=== PATIENT | male | born 1970 | race Caucasian/White ===

== ENCOUNTER → 2016-07-30 | Outpatient (CLI) | payer OTHER ==
--- NOTE | 2016-07-30 10:13 | CT ---
EXAMINATION TYPE: CT chest wo con DATE OF EXAM: 07/30/2016 9:57 AM COMPARISON: NONE HISTORY: Abnormal cxr CT DLP: 222.90 mGycm. Automated Exposure Control for Dose Reduction was Utilized. TECHNIQUE: CT scan of the thorax is performed without IV contrast. FINDINGS: LUNGS: There is mild underlying emphysematous change with apical scarring and bleb formation seen eduar aterally. Lungs are grossly clear without suspicious consolidation or groundglass opacity seen bilate rally. No concerning parenchymal nodule or mass is identified bilaterally. No pleural effusion or pne umothorax is seen. Tracheobronchial tree is patent. MEDIASTINUM: Lack of IV contrast is noted to limit evaluation for mediastinal and especially hilar ad enopathy. There are no definitive greater than 1 cm hilar or mediastinal lymph nodes. No cardiomega ly or pericardial effusion is seen. Coronary artery calcification in the LAD distribution is present. OTHER: Exaggerated kyphosis with mild to moderate disc space narrowing and mild spurring at T11-T12 l evel is noted. There is 2 mm nonobstructing calculus upper pole level left kidney on coronal image 55 . Artifact from metallic necklace at neck level is noted making evaluation at this level suboptimal. IMPRESSION: No suspicious parenchymal mass or nodule is identified.
== END ==
LOC: RADCTMAIN 09:26
PROVIDERS: ATTEND Family Medicine
DX: R93.8 Abnormal findings on diagnostic imaging of other specified body structures (principal)
CPT/HCPCS: 71250

== ENCOUNTER 2016-08-26 18:35 | Emergency (ER) | payer OTHER ==
[2016-08-26] MEDS ORDERED: SODIUM CHLORIDE 0.9% 500 ML IV STA (20:31)
[2016-08-26] MEDS ORDERED: SODIUM CHLORIDE 0.9% 1,000 ML IV STA (20:31)
[2016-08-26] MEDS ORDERED: RX INFO: IV CONTRAST WAS GIVEN 1 EACH MISC MISCELLANE PRN (20:32)
[2016-08-26 21:21] LABS: Basophils % (A) 1 %; CH 31.8; CHCM 34.2; Eosinophils % (A) 0 %; HCT 48.6 % (39.0-53.0); HDW 2.21; HGB 16.4 gm/dL (13.0-17.5); Luc # (Auto) 0.15; Luc % (Auto) 2; Lymphocytes # (A) 1.6 k/uL (1.0-4.8); Lymphocytes % (A) 21 %; MCH 31.5 pg (25.0-35.0); MCHC 33.8 g/dL (31.0-37.0); MCV 93.4 fL (80.0-100.0); Mean Platelet Volume 6.4; Monocytes # (A) 0.5 k/uL (0-1.0); Monocytes % (A) 6 %; Neutrophils # (A) 5.2 k/uL (1.3-7.7); Neutrophils % (A) 70 %; RDW 14.8 % (11.5-15.5); WBC 7.4 k/uL (3.8-10.6); WBC (Perox) 7.77
[2016-08-26 21:37] LABS: INR 1.4 (<1.1); Partial Thromboplastin Time 25.2 sec (22.0-30.0); Prothrombin Time 13.5 sec (9.0-12.0)
[2016-08-26 21:42] LABS: ALT 36 U/L (21-72); AST 37 U/L (17-59); Acetaminophen <10.0 ug/mL; Alkaline Phosphatase 101 U/L (38-126); Anion Gap 12 mmol/L; Blood Urea Nitrogen 8 mg/dL (9-20); Calcium 8.6 mg/dL (8.4-10.2); Carbon Dioxide 30 mmol/L (22-30); Chloride 104 mmol/L (98-107); Glucose 88 mg/dL (74-99); Non-African American GFR(MDRD) >60 (>60 ml/min/1.73 sqM); Potassium 4.1 mmol/L (3.5-5.1); Salicylate 2.7 mg/dL; Sodium 146 mmol/L (137-145); Total Bilirubin 0.8 mg/dL (0.2-1.3); Total Protein 7.6 g/dL (6.3-8.2)
[2016-08-26 21:47] LABS: Alcohol 262 mg/dL
--- NOTE | 2016-08-26 22:11 | CT ---
EXAMINATION TYPE: CT brain wo con DATE OF EXAM: 08/26/2016 9:32 PM COMPARISON: NONE HISTORY: Altered mental status. Head injury per order. CT DLP: 1074.10 mGycm. Automated Exposure Control for Dose Reduction was Utilized. TECHNIQUE: CT scan of the head is performed without contrast. FINDINGS: There is no acute intracranial hemorrhage, mass effect, or midline shift identified. The ventricles and sulci are within normal limits in size. Rodriguez-white matter differentiation is felt ma intained. Mild to moderate mucosal thickening involving inferior left frontal and anterior left ethmo id sinus is present. The globes are intact and the visualized paranasal sinuses otherwise are clear. The calvarium is intact. IMPRESSION: No acute intracranial hemorrhage or midline shift is seen.
--- NOTE | 2016-08-26 22:43 | ED ---
General Adult HPI - General Source: family Mode of arrival: wheelchair Limitations: altered mental status <Jacoby Milian - Last Filed: 08/26/16 22:43> <Perico Linares - Last Filed: 08/27/16 08:49> - General Chief complaint: Alcohol Stated complaint: Overdose Time Seen by Provider: 08/26/16 20:23 - History of Present Illness Initial comments: This 45-year-old white male presents after apparently drinking a significant amount of alcohol. He states that for the past 2 days he has been drinking approximately 1/5 of alcohol. He also apparently has been taking a lot of Xanax. He states that he is taking 10 Xanax bars per day. Apparently a Xanax bar equals 1 mg. He was brought in by EMS but his friends are present with them. They relate that he has been clear of drugs and alcohol for the last 2 years until the last 2 days. They apparently found him in bed. He was telling them that he wants to drink himself to . He does confirm this in the ER. He presents with an abrasion to his left forehead region. He is unsure how this happened. He does state that he is on Coumadin and thinks that he may have taken too much of this by accident. He denies any other injuries or areas of pain or modifying factors. Overall, he is a fairly poor historian due to his intoxication. (Jacoby Milian) - Related Data Home Medications Medication Instructions Recorded Confirmed Multivitamins, Thera [Multivitamin 1 tab PO DAILY 08/26/16 08/26/16 (formulary)] Warfarin [Coumadin] 2.5 mg PO SUMOWEFR 08/26/16 08/26/16 Warfarin [Coumadin] 5 mg PO TUTH 08/26/16 08/26/16 Allergies Allergy/AdvReac Type Severity Reaction Status Date / Time No Known Allergies Allergy Verified 08/26/16 20:41 Review of Systems ROS Other: All systems not noted in ROS Statement are negative. <Jacoby Milian - Last Filed: 08/26/16 22:43> ROS Other: All systems not noted in ROS Statement are negative. <Perico Linares - Last Filed: 08/27/16 08:49> ROS Statement: Those systems with pertinent positive or pertinent negative responses have been documented in the HPI. Past Medical History Additional Past Medical History / Comment(s): FACTOR 5, FORMER ALCOHOLIC History of Any Multi-Drug Resistant Organisms: None Reported Additional Past Surgical History / Comment(s): STOMACH, neck Past Psychological History: Anxiety, Depression Smoking Status: Current every day smoker Past Alcohol Use History: None Reported, Heavy Past Drug Use History: None Reported, Prescription Drug Abuse <Jacoby Milian - Last Filed: 08/26/16 22:43> General Exam Limitations: altered mental status <Jacoby Milian - Last Filed: 08/26/16 22:43> <Perico Linares - Last Filed: 08/27/16 08:49> - General Exam Comments Initial Comments: GENERAL: The patient is well nourished and well hydrated. VITAL SIGNS: Heart rate, blood pressure, respiratory rate reviewed as recorded in nurse's notes. EYES: Pupils are round and reactive. Extraocular movements are intact. No conjunctival / lid redness or swelling. ENT: No external evidence of injury, swelling, or ecchymosis other than a slight abrasion present to his left forehead region. Airway is patent. Throat is clear. NECK: Nontender. No swelling or evidence of injury. No subcutaneous emphysema. Trachea is midline. No thyroid mass. HEART: Regular rate and rhythm. Good peripheral pulses. LUNGS/CHEST: Breath sounds clear and equal bilaterally. No rales, rhonchi, or wheezes. No ecchymosis, subcutaneous emphysema, or tenderness. ABDOMEN: Abdomen soft without tenderness. No palpable masses or organomegaly. No peritoneal signs. No abdominal wall swelling or ecchymosis. EXTREMITIES: No extremity tenderness. Normal muscle tone and function. No thoracolumbar tenderness. NEUROLOGIC: Sensation is grossly intact. Cranial nerve exam reveals face is symmetrical, tongue is midline, speech is clear. SKIN: No other abrasions or ecchymosis is noted. No induration or masses noted. PSYCHIATRIC: Alert and oriented. Appears intoxicated. (Jacoby Milian) Course <Jacoby Milian - Last Filed: 08/26/16 22:43> <Perico Linares - Last Filed: 08/27/16 08:49> Vital Signs 08/26/16 08/26/16 08/26/16 18:37 20:41 22:00 Temperature 98.2 F Pulse Rate 107 H 88 87 Respiratory 18 20 20 Rate Blood Pressure 132/90 125/56 120/70 O2 Sat by Pulse 94 L 96 98 Oximetry 08/27/16 06:14 Temperature Pulse Rate 89 Respiratory 18 Rate Blood Pressure 116/58 O2 Sat by Pulse 96 Oximetry - Reevaluation(s) Reevaluation #1: 08/27/16 08:49 Patient was made medically clear for psychiatric evaluation (Perico Linares) Medical Decision Making - Lab Data Result diagrams: 08/26/16 20:55 08/26/16 20:55 <Jacoby Milian - Last Filed: 08/26/16 22:43> - Lab Data Result diagrams: 08/26/16 20:55 08/26/16 20:55 <Perico Linares - Last Filed: 08/27/16 08:49> - Medical Decision Making The patient was seen and examined. All diagnostics were reviewed to this point. The patient appears to have an elevation of his alcohol level. He'll be watched in the ER for the evening. The computed tomography scan of the brain did not show any acute process. Further care will be passed on to Dr. Giles. (Jacoby Milian) 45-year-old ER for evaluation of psychiatric care. Patient seen and evaluated by psychiatry, states patient is safe for discharge home, will probably be provided with referrals, not homicidal or suicidal currently (Perico Linares) - Lab Data Lab Results 08/26/16 08/26/16 08/26/16 Range/Units 20:55 20:55 20:55 WBC 7.4 (3.8-10.6) k/uL RBC 5.20 (4.30-5.90) m/uL Hgb 16.4 (13.0-17.5) gm/dL Hct 48.6 (39.0-53.0) % MCV 93.4 (80.0-100.0) fL MCH 31.5 (25.0-35.0) pg MCHC 33.8 (31.0-37.0) g/dL RDW 14.8 (11.5-15.5) % Plt Count 309 (150-450) k/uL Neutrophils % 70 % Lymphocytes % 21 % Monocytes % 6 % Eosinophils % 0 % Basophils % 1 % Neutrophils # 5.2 (1.3-7.7) k/uL Lymphocytes # 1.6 (1.0-4.8) k/uL Monocytes # 0.5 (0-1.0) k/uL Eosinophils # 0.0 (0-0.7) k/uL Basophils # 0.0 (0-0.2) k/uL PT 13.5 H (9.0-12.0) sec INR 1.4 (<1.1) APTT 25.2 (22.0-30.0) sec Sodium 146 H (137-145) mmol/L Potassium 4.1 (3.5-5.1) mmol/L Chloride 104 (98-107) mmol/L Carbon Dioxide 30 (22-30) mmol/L Anion Gap 12 mmol/L BUN 8 L (9-20) mg/dL Creatinine 0.98 (0.66-1.25) mg/dL Est GFR (MDRD) Af Amer >60 (>60 ml/min/1.73 sqM) Est GFR (MDRD) Non-Af >60 (>60 ml/min/1.73 sqM) Glucose 88 (74-99) mg/dL Calcium 8.6 (8.4-10.2) mg/dL Total Bilirubin 0.8 (0.2-1.3) mg/dL AST 37 (17-59) U/L ALT 36 (21-72) U/L Alkaline Phosphatase 101 (38-126) U/L Total Protein 7.6 (6.3-8.2) g/dL Albumin 4.2 (3.5-5.0) g/dL Salicylates 2.7 mg/dL Urine Opiates Screen (NotDetected) Ur Oxycodone Screen (NotDetected) Urine Methadone Screen (NotDetected) Ur Propoxyphene Screen (NotDetected) Acetaminophen <10.0 ug/mL Ur Barbiturates Screen (NotDetected) U Tricyclic Antidepress (NotDetected) Ur Phencyclidine Scrn (NotDetected) Ur Amphetamines Screen (NotDetected) U Methamphetamines Scrn (NotDetected) U Benzodiazepines Scrn (NotDetected) Urine Cocaine Screen (NotDetected) U Marijuana (THC) Screen (NotDetected) Serum Alcohol 262 mg/dL 08/27/16 Range/Units 01:22 WBC (3.8-10.6) k/uL RBC (4.30-5.90) m/uL Hgb (13.0-17.5) gm/dL Hct (39.0-53.0) % MCV (80.0-100.0) fL MCH (25.0-35.0) pg MCHC (31.0-37.0) g/dL RDW (11.5-15.5) % Plt Count (150-450) k/uL Neutrophils % % Lymphocytes % % Monocytes % % Eosinophils % % Basophils % % Neutrophils # (1.3-7.7) k/uL Lymphocytes # (1.0-4.8) k/uL Monocytes # (0-1.0) k/uL Eosinophils # (0-0.7) k/uL Basophils # (0-0.2) k/uL PT (9.0-12.0) sec INR (<1.1) APTT (22.0-30.0) sec Sodium (137-145) mmol/L Potassium (3.5-5.1) mmol/L Chloride (98-107) mmol/L Carbon Dioxide (22-30) mmol/L Anion Gap mmol/L BUN (9-20) mg/dL Creatinine (0.66-1.25) mg/dL Est GFR (MDRD) Af Amer (>60 ml/min/1.73 sqM) Est GFR (MDRD) Non-Af (>60 ml/min/1.73 sqM) Glucose (74-99) mg/dL Calcium (8.4-10.2) mg/dL Total Bilirubin (0.2-1.3) mg/dL AST (17-59) U/L ALT (21-72) U/L Alkaline Phosphatase (38-126) U/L Total Protein (6.3-8.2) g/dL Albumin (3.5-5.0) g/dL Salicylates mg/dL Urine Opiates Screen Not Detected (NotDetected) Ur Oxycodone Screen Not Detected (NotDetected) Urine Methadone Screen Not Detected (NotDetected) Ur Propoxyphene Screen Not Detected (NotDetected) Acetaminophen ug/mL Ur Barbiturates Screen Not Detected (NotDetected) U Tricyclic Antidepress Not Detected (NotDetected) Ur Phencyclidine Scrn Not Detected (NotDetected) Ur Amphetamines Screen Not Detected (NotDetected) U Methamphetamines Scrn Not Detected (NotDetected) U Benzodiazepines Scrn Detected H (NotDetected) Urine Cocaine Screen Not Detected (NotDetected) U Marijuana (THC) Screen Not Detected (NotDetected) Serum Alcohol mg/dL Disposition <Jacoby Milian - Last Filed: 08/26/16 22:43> <Perico Linares - Last Filed: 08/27/16 08:49> Clinical Impression: Alcohol intoxication, Benzodiazepine abuse, Head injury Disposition: HOME SELF-CARE Condition: Good Instructions: Alcohol Intoxication (ED) Referrals: Loly Chauhan MD [Primary Care Provider] - 1-2 days
[2016-08-27 10:00] VITALS: BP 124/85; PULSE 78; RESP 16; TEMP 97.8
== END 2016-08-27 09:57 | disposition home or self-care (01) ==
LOC: EC 18:35
DX: S00.81XA Abrasion of other part of head, initial encounter (principal); F13.129 Sedative, hypnotic or anxiolytic abuse with intoxication, unspecified; F32.9 Major depressive disorder, single episode, unspecified; F41.9 Anxiety disorder, unspecified; F17.200 Nicotine dependence, unspecified, uncomplicated; Z79.01 Long term (current) use of anticoagulants; Z79.899 Other long term (current) drug therapy; X58.XXXA Exposure to other specified factors, initial encounter
CPT/HCPCS: 36415; 70450; 80053; 80306; 80320; 83520; 85025; 85610; 85730; 99285

== ENCOUNTER 2022-09-01 09:08 | Day surgery (SDC) | payer OTHER ==
[2022-08-27 09:55] VITALS: BMI 25.7
[~2022-09-01 09:08] MED LIST: ACETAMINOPHEN TAB 500 MG TAB PO PRN; DEXAMETHASONE SOD PHOSPHATE 4 MG/ML 1 ML VIAL IV ONE; HEPARIN SODIUM,PORCINE/PF 5,000 UNIT/0.5 ML SYRINGE SQ PRN; HYDROmorphone 0.5 MG/0.5 ML SYRINGE IVP PRN; LIDOCAINE 1% (10MG/ML) FOR IV START INTRADERMA PRN; droPERidol 5 MG/2 ML VIAL IVP ONE
[2022-09-01 10:27] LABS: Glucose,Whole Blood 80 mg/dL (70-110)
[2022-09-01] MEDS: LACTATED RINGERS 1,000 ML IV SCH (10:33)
[2022-09-01] MEDS: ONDANSETRON 4 MG/2 ML VIAL IVP ONE ×2 (10:33→10:34)
[2022-09-01] MEDS ORDERED: MIDAZOLAM 2 MG/2 ML VIAL IVP ONE (11:15)
[2022-09-01 11:16] LABS: Basophils % (A) 1 %; Eosinophils # (A) 0.1 k/uL (0-0.7); Eosinophils % (A) 1 %; HCT 45.3 % (39.0-53.0); Lymphocytes # (A) 1.3 k/uL (1.0-4.8); Lymphocytes % (A) 23 %; MCH 29.9 pg (25.0-35.0); MCHC 33.2 g/dL (31.0-37.0); MCV 90.2 fL (80.0-100.0); Mean Platelet Volume 7.5; Monocytes # (A) 0.4 k/uL (0-1.0); Monocytes % (A) 7 %; Neutrophils # (A) 3.8 k/uL (1.3-7.7); Neutrophils % (A) 67 %; Platelet Count 329 k/uL (150-450); RBC 5.02 m/uL (4.30-5.90); RDW 12.7 % (11.5-15.5); WBC 5.8 k/uL (3.8-10.6)
--- NOTE | 2022-09-01 11:28 | P.GSHP ---
History of Present Illness H&P Date: 09/01/22 Chief Complaint: Incarcerated ventral hernia 51-year-old male presents with complaints of a bulge above the umbilicus. States this has been increasing in size. It is more uncomfortable lately. Occasionally he is able to reduce this hernia. Past Medical History Past Medical History: Deep Vein Thrombosis (DVT), Prostate Disorder Additional Past Medical History / Comment(s): FACTOR 5 Leiden-dvts left calf yrs aog, FORMER ALCOHOLIC-quit drinking 150 days ago,enlarged prostate,enlarged liver History of Any Multi-Drug Resistant Organisms: None Reported Additional Past Surgical History / Comment(s): "STOMACH surgery because I wasn't able to hold food down as a ", left carotid artery "cleaned out" Past Anesthesia/Blood Transfusion Reactions: No Reported Reaction Additional Past Anesthesia/Blood Transfusion Reaction / Comment(s): no hx blood transfusion Smoking Status: Current every day smoker - Past Family History Mother Family Medical History: No Reported History Medications and Allergies Home Medications Medication Instructions Recorded Confirmed Type Apixaban [Eliquis] 2.5 mg PO BID 08/27/22 09/01/22 History Cholecalciferol [Vitamin D3 (25 50 mcg PO DAILY 08/27/22 09/01/22 History Mcg = 1000 Iu)] Tamsulosin [Flomax] 0.4 mg PO QAM 08/27/22 09/01/22 History tiZANidine HCL [Zanaflex] 4 - 8 mg PO HS PRN 08/27/22 09/01/22 History Allergies Allergy/AdvReac Type Severity Reaction Status Date / Time No Known Allergies Allergy Verified 09/01/22 10:09 Surgical - Exam Vital Signs Temp Pulse Resp BP Pulse Ox 96.7 F L 65 17 117/70 97 09/01/22 10:15 09/01/22 10:15 09/01/22 10:15 09/01/22 10:15 09/01/22 10:15 Physical exam: General: Well-developed, well-nourished HEENT: Normocephalic, sclerae nonicteric Abdomen: Nontender, nondistended, incarcerated hernia above the umbilicus suspect ventral Extremities: No edema Neuro: Alert and oriented Results - Labs 09/01/22 10:30 Assessment and Plan (1) Incarcerated ventral hernia Narrative/Plan: Will proceed with open repair incarcerated ventral hernia with possible mesh. Risks of bleeding, infection, recurrence, bladder and bowel injury, numbness, nerve injury were discussed with the patient. The patient understands and wishes to proceed. Current Visit: Yes Status: Acute Code(s): K43.6 - OTHER AND UNSP VENTRAL HERNIA WITH OBSTRUCTION, W/O GANGRENE SNOMED Code(s): 468102011
[2022-09-01 11:37] LABS: Calcium 9.4 mg/dL (8.4-10.2); Potassium 4.2 mmol/L (3.5-5.1)
[2022-09-01] MEDS ORDERED: WATER FOR INJECTION, STERILE 10 ML VIAL IV ONE (11:47)
[2022-09-01] MEDS ORDERED: fentaNYL (PF) 50 MCG/ML 2 ML AMP ONE (11:47)
[2022-09-01] MEDS ORDERED: NEOSTIGMINE 1 MG/ML 10 ML VIAL ONE (11:47)
[2022-09-01] MEDS ORDERED: DEXAMETHASONE SOD PHOSPHATE 4 MG/ML 1 ML VIAL ONE (11:47)
[2022-09-01] MEDS ORDERED: ROCURONIUM 10 MG/ML (5 ML VIAL) IV ONE (11:47)
[2022-09-01] MEDS ORDERED: PHENYLEPHRINE-0.9% NACL SYG 1,000 MCG/10 ML SYRINGE ONE (11:47)
[2022-09-01] MEDS ORDERED: PROPOFOL 10 MG/ML 20 ML VIAL IV ONE (11:47)
[2022-09-01] MEDS ORDERED: ROPIVACAINE 5 MG/ML 30 ML VIAL ONE (11:47)
[2022-09-01] MEDS ORDERED: GLYCOPYRROLATE 0.2 MG/ML 2 ML VIAL ONE (11:47)
[2022-09-01] MEDS ORDERED: SUCCINYLCHOLINE CHLORIDE 200 MG/10 ML VIAL IV ONE (11:47)
[2022-09-01] MEDS ORDERED: LIDOCAINE 2% INJ 20 MG/ML (2 ML VIAL) ONE (11:47)
[2022-09-01] MEDS ORDERED: LACTATED RINGERS 1,000 ML IV ONE (12:59)
[2022-09-01] MEDS ORDERED: HYDROmorphone 1 MG/ML 1 ML SYRINGE IVP PRN (13:59)
[2022-09-01] MEDS ORDERED: HYDROmorphone 0.5 MG/0.5 ML SYRINGE IVP PRN (13:59)
[2022-09-01] MEDS ORDERED: NALOXONE 0.4 MG/ML 1 ML VIAL IV PRN (13:59)
--- NOTE | 2022-09-01 14:06 | P.OP ---
Date of Procedure: 09/01/22 Procedure(s) Performed: PREOPERATIVE DIAGNOSIS: Incarcerated ventral hernia POSTOPERATIVE DIAGNOSIS: Incarcerated ventral hernia with multiple defects, reducible umbilical hernia PROCEDURE: Open repair incarcerated ventral hernia and umbilical hernia with mesh SURGEON: Dr. New ANESTHESIA: General OPERATIVE PROCEDURE DETAILS: Patient placed on the operating table in the supine position. Abdomen was prepped and draped in usual sterile fashion. A vertical incision was then made superior to the umbilicu. Dissection through the subcutaneous tissues took place using electrocautery. The patient had a total of 4 fascial defects identified. 3 of these fascial defects were in the supraumbilical location. A single reducible umbilical hernia was also noted. These were all included in 21 fascial opening by dividing the thin bridge of fascia between these holes. We now had a fascial defect measuring 7 x 3 cm. The preperitoneal space was dissected using electrocautery and blunt dissection. We did penetrate into the peritoneum laterally. The hernia sac and pre- peroneal fat was excised using 3-0 silk ties. Once we had adequate space a 8 x 12 cm Ventrio mesh was placed. This was then sutured to the fascia using trans- fascial 0 Ethibond sutures. Secure strap was also utilized circumferentially. Following that the midline fascia was reapproximated using interrupted 0 Ethibond mattress sutures. A drain was placed anterior to the fascial closure exiting from the left lower quadrant. This is sutured in place using a silk stitch. The subcutaneous tissues were closed using 2-0 Vicryl sutures. The skin was closed using a running 4-0 Monocryl suture. Skin glue and sterile dressings were applied. HERNIA CHARACTERISTICS: Length: 7 cm Width: 3 cm Type: Combined ventral and umbilical TYPE OF MESH USED: Ventrio 8 x 12 cm LOCATION OF MESH: Sub-lay intraperitoneal FIXATION: 0 Ethibond and secure strap PREOPERATIVE DISCUSSION ON SMOKING CESSASTION: Yes PREOPERATIVE DISCUSSION ON MORBID OBESITY: Yes PREOPERATIVE DISCUSSION ON APPROPRIATE USE OF NARCOTIC USE: Yes PREOPERATIVE EDUCATION: Multi Modal, Smoking Cessation and Weight Loss with BMI over 35. DISPOSITION: Stable to recovery room
[2022-09-01] MEDS: D5-0.45% NACL WITH KCL 20MEQ/L 1,000 ML IV SCH (16:16)
[2022-09-01] MEDS: HEPARIN SODIUM,PORCINE/PF 5,000 UNIT/0.5 ML SYRINGE SQ SCH (16:17)
[2022-09-01] MEDS: KETOROLAC 15 MG/ML 1 ML VIAL IVP SCH (18:08)
[2022-09-01] MEDS: DOCUSATE 100 MG CAP PO SCH (20:21)
[2022-09-01] MEDS: FAMOTIDINE 20 MG TAB PO SCH (20:21)
[2022-09-01] MEDS: HYDROcodone/APAP 5-325MG 1 EACH TAB PO PRN (20:21)
[2022-09-02] MEDS: HEPARIN SODIUM,PORCINE/PF 5,000 UNIT/0.5 ML SYRINGE SQ SCH ×2 (01:31→09:30)
[2022-09-02] MEDS: HYDROcodone/APAP 5-325MG 1 EACH TAB PO PRN ×2 (01:31→09:40)
[2022-09-02] MEDS: KETOROLAC 15 MG/ML 1 ML VIAL IVP SCH ×3 (01:31→12:16)
[2022-09-02] MEDS: D5-0.45% NACL WITH KCL 20MEQ/L 1,000 ML IV SCH ×2 (01:32→12:16)
[2022-09-02] MEDS: LACTATED RINGERS 1,000 ML IV SCH (07:50)
[2022-09-02 08:31] VITALS: BP 98/65; PULSE 67; RESP 16; TEMP 98.2
[2022-09-02] MEDS: FAMOTIDINE 20 MG TAB PO SCH (09:30)
[2022-09-02] MEDS: DOCUSATE 100 MG CAP PO SCH (09:30)
--- NOTE | 2022-09-02 11:37 | P.DS ---
Providers Expected date of discharge: 09/02/22 Attending physician: Sergio New Primary care [facility] Course: Discharge diagnosis 1. Incarcerated ventral hernia with multiple defects, reducible umbilical hernia Hospital course This is a 51-year-old male with an incarcerated ventral hernia and reducible umbilical hernia. He is status post open repair of incarcerated ventral hernia and umbilical hernia with mesh. Patient's pain is controlled. He is tolerating diet. He has been up and ambulating. He is having flatus. He is afebrile. Incision sites clean dry and intact. He is stable for discharge. Please refer to chart for any further details. Physician Regional Sales Director note has been reviewed by physician. Signing provider agrees with the documented findings, assessment, and plan of care. Patient Condition at Discharge: Stable Plan - Discharge Summary Discharge Rx Participant: No New Discharge Prescriptions: New oxyCODONE HCL [OxyIR] 5 mg PO Q6H PRN 3 Days #6 tab PRN Reason: Breakthrough Pain Continue Tamsulosin [Flomax] 0.4 mg PO QAM Cholecalciferol [Vitamin D3 (25 Mcg = 1000 Iu)] 50 mcg PO DAILY tiZANidine HCL [Zanaflex] 4 - 8 mg PO HS PRN PRN Reason: Pain Control No Action Apixaban [Eliquis] 2.5 mg PO BID Discharge Medication List Apixaban [Eliquis] 2.5 mg PO BID 08/27/22 [History] Cholecalciferol [Vitamin D3 (25 Mcg = 1000 Iu)] 50 mcg PO DAILY 08/27/22 [History] Tamsulosin [Flomax] 0.4 mg PO QAM 08/27/22 [History] tiZANidine HCL [Zanaflex] 4 - 8 mg PO HS PRN 08/27/22 [History] oxyCODONE HCL [OxyIR] 5 mg PO Q6H PRN 3 Days #6 tab 09/01/22 [Rx] Follow up Appointment(s)/Referral(s): Sergio New MD [Medical Doctor] - 09/10/22 2:30 pm Patient Instructions/Handouts: *Surgery [facility] - (Anesthesia) Discharge Instructions Outpatient Surgery, Demian-Baker Drain Care (ED), Demian-Baker Drain Care (DC), Open Herniorrhaphy (DC), Ventral Hernia Repair (DC) Activity/Diet/Wound Care/Special Instructions: No driving while taking OxyIR No lifting over 10 pounds You may shower. No soaking or tub baths for 2 weeks Very light activity until you are reevaluated at your follow up appointment with your surgeon Keep a log of SKIP drain output and bring with you to your follow-up appointment Milk/strip drains 2-3 times a day Resume Christophe tomorrow 09/03/22 Discharge Disposition: HOME WITH HOME HEALTH SERVICES
--- NOTE | 2022-09-02 13:06 | P.ANPRN ---
Procedure Note - Anesthesia - Nerve Block Performed Bilateral Transversus Abdominis Single Time Out Performed: Yes Date of Procedure: 09/01/22 Procedure Start Time: 11:14 Procedure Stop Time: :21 Location of Patient: PreOp Indication: Acute Post-Operative Pain, Requested by Surgeon Sedation Type: Sedate with meaningful contact maintained Preparation: Sterile Prep Position: Supine Needle Types: Pajunk Needle Gauge: 21 Ultrasound used to visualize needle placement: Yes Ultrasound used to observe medication spread: Yes Blood Aspirated: No Pain Paresthesia on Injection Noted: No Resistance on Injection: Normal Image Stored and Saved: Yes Events: Uneventful and Well Tolerated (ropi .5% 20cc plus dexamethasone 4mg given bilaterally)
== END 2022-09-02 14:42 | disposition home health service (06) ==
LOC: OR 09:08 → 6NMEDSUR 13:50 → OR 09-02 14:42
PROVIDERS: ATTEND Surgery
DX: K43.6 Other and unspecified ventral hernia with obstruction, without gangrene (principal); K42.9 Umbilical hernia without obstruction or gangrene; G89.18 Other acute postprocedural pain; Z86.718 Personal history of other venous thrombosis and embolism; F17.200 Nicotine dependence, unspecified, uncomplicated; Z79.01 Long term (current) use of anticoagulants; Z79.899 Other long term (current) drug therapy
CPT/HCPCS: 64488; 80048; 85025; 88302; 49594; C1781; J2250; J1100; J0690; J2405; J1170 ×2; J1885 ×2; J1644 ×2

== ENCOUNTER → 2022-10-16 | Outpatient (CLI) | payer OTHER ==
--- NOTE | 2022-10-16 12:00 | US ---
EXAMINATION TYPE: US carotid duplex BILAT DATE OF EXAM: 10/16/2022 COMPARISON: NONE CLINICAL INDICATION: Male, 51 years old with history of I77.9 DISORDER OF ARTERIES AND ARTERIOLES, UN SPECI; known Lt. side occlusion TECHNIQUE: Carotid duplex ultrasound examination. Indirect Doppler criteria was utilized. FINDINGS: EXAM MEASUREMENTS: RIGHT: Peak Systolic Velocity (PSV) cm/sec ----- Right CCA: 89.7 ----- Right ICA: 90.1 ----- Right ECA: 72.1 ICA/CCA ratio: 1.0 RIGHT: End Diastole cm/sec ----- Right CCA: 35.8 ----- Right ICA: 48.7 ----- Right ECA: 20.4 LEFT: Peak Systolic Velocity (PSV) cm/sec ----- Left CCA: 0.0 ----- Left ICA: 0.0 ----- Left ECA: 60.4 ICA/CCA ratio: n/a LEFT: End Diastole cm/sec ----- Left CCA: 0.0 ----- Left ICA: 0.0 ----- Left ECA: 32.5 VERTEBRALS (direction of flow): Right Vertebral: Antegrade Left Vertebral: Antegrade Rhythm: Normal SOFTWARE ENGINEERING SPECIALIST NOTES: small area of plaque in RT bulb. LT side known occlusion extends from prox CCA to Prox ICA, flow noted in ECA IMPRESSION: 1. No ultrasound evidence for hemodynamically significant stenosis of the right carotid arterial syst em. 2. 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 There is flow noted within the left external carotid artery. Criteria for Assigning % of Stenosis / Diameter reduction (Estimation based on the indirect measurements of the internal carotid artery velocities (ICA PSV). 1. Normal (no stenosis)=ICA PSV < 125 cm/s: ratio < 2.0: ICA EDV<40 cm/s. 2. Less than 50% stenosis=ICA PSV < 125 cm/s: ratio < 2.0: ICA EDV<40 cm/s. 3. 50 to 69% stenosis=ICA PSV of 125 to 230 cm/s: ration 2.0 ? 4.0: ICA EDV 40-100 cm/s. 4. Greater than 70% stenosis to near occlusion= ICA PSV > 230 cm/s: ratio > 4.0: ICA EDV > 100 cm/s. 5. Near occlusion= ICA PSV velocities may be low or undetectable: variable ratio and ICA EDV. 6. Total occlusion=unable to detect flow.
== END | disposition home or self-care (01) ==
LOC: RADUSWWP 10:51
PROVIDERS: ATTEND Family Medicine
DX: I65.22 Occlusion and stenosis of left carotid artery (principal); I77.9 Disorder of arteries and arterioles, unspecified
CPT/HCPCS: 93880

== ENCOUNTER → 2023-06-24 | Outpatient (CLI) | payer OTHER ==
--- NOTE | 2023-06-24 12:23 | CTL ---
EXAMINATION TYPE: CT Low Dose Lung DATE OF EXAM ORDERED: 06/24/2023 HISTORY: . Lung cancer screening CT DLP: [address] CTDI: 1.95 mGy Automated exposure control for dose reduction was used. COMPARISON: 07/30/2016. TECHNIQUE: Low dose computed tomography scan was performed through the chest at 1 mm thick sections a nd reconstructed images in multiple planes at 1 mm and [address] DIAGNOSTIC QUALITY: Satisfactory FINDINGS: Mediastinum and Sangeeta: There is no axillary, mediastinal or hilar lymphadenopathy. Pleural and Pericardial spaces: There are no pleural or pericardial effusions. Upper Abdomen: The visualized upper abdomen is unremarkable. Cardiovascular: The thoracic aorta is normal in size. There are mild patchy coronary artery calcifica tions. Lung Parenchyma and Airways: The lungs are clear. Bones: No fracture or aggressive osseous lesion. IMPRESSION: 1. Negative lung cancer screening examination for new or significant pulmonary nodules. 2. Mild coronary artery calcifications. CT LUNG RAD AND CT CHEST RECOMMENDATION: Lung-Rad 1 Negative: Continue annual screening with LDCT in 12 months.
== END | disposition home or self-care (01) ==
LOC: RADCTMAIN 09:20
PROVIDERS: ATTEND Family Medicine
DX: Z12.2 Encounter for screening for malignant neoplasm of respiratory organs (principal); F17.210 Nicotine dependence, cigarettes, uncomplicated; I25.10 Atherosclerotic heart disease of native coronary artery without angina pectoris
CPT/HCPCS: 71271

== ENCOUNTER → 2023-07-02 | Outpatient (CLI) | payer OTHER ==
--- NOTE | 2023-07-02 14:03 | US ---
EXAMINATION TYPE: US kidneys/renal and bladder DATE OF EXAM: 07/02/2023 COMPARISON: NONE CLINICAL INDICATION: Male, 52 years old with history of R31.21 ASYMPTOMATIC MICROSCOPIC HEMATURIA,Z72 .0; Patient states he is anemic. No other pain or symptoms EXAM MEASUREMENTS: Right Kidney: 9.4 x 4.3 x 5.3 cm Left Kidney: 9.5 x 5.0 x 5.3 cm Slightly limited due to overlying gas Right Kidney: The superior pole is obscured by bowel gas. There is a 1.8 x 1.3cm anechoic area near t he hilum. Possible prominent renal pelvis vs other. Left Kidney: No hydronephrosis or masses seen as best visualized Bladder: There is a 1.1cm hyperechoic area in the bladder posteriorly. ? layering debris vs thickened posterior bladder wall. Bilateral Jets seen: Right only IMPRESSION: 1. Prominent renal pelves bilaterally. No evidence for obstructive uropathy. 2. Right upper renal cyst. 3. Prominence of the posterior bladder wall correlate with urinalysis for debris versus wall thicken ing. Consider CT urogram, direct visualization or short-term follow-up in 1to 2 months.
== END | disposition home or self-care (01) ==
LOC: RADUSWWP 12:26
PROVIDERS: ATTEND Family Medicine
DX: N28.1 Cyst of kidney, acquired (principal); N32.89 Other specified disorders of bladder; D64.9 Anemia, unspecified; R31.21 Asymptomatic microscopic hematuria; Z72.0 Tobacco use
CPT/HCPCS: 76770

== ENCOUNTER 2024-04-07 21:28 | Emergency (ER) | payer OTHER ==
[2024-04-07 21:32] VITALS: TEMP 97.3
[2024-04-07] MEDS: SODIUM CHLORIDE 0.9% 1,000 ML IV STA (22:29)
[2024-04-07 22:34] LABS: Basophils % (A) 0 %; Eosinophils # (A) 0.1 k/uL (0-0.7); Eosinophils % (A) 0 %; HGB 14.3 gm/dL (13.0-17.5); Lymphocytes # (A) 1.9 k/uL (1.0-4.8); Lymphocytes % (A) 13 %; MCH 29.4 pg (25.0-35.0); MCHC 32.6 g/dL (31.0-37.0); MCV 90.2 fL (80.0-100.0); Mean Platelet Volume 7.2; Monocytes # (A) 0.7 k/uL (0-1.0); Monocytes % (A) 5 %; Neutrophils # (A) 11.6 k/uL (1.3-7.7); Neutrophils % (A) 80 %; Platelet Count 333 k/uL (150-450); RBC 4.87 m/uL (4.30-5.90); RDW 12.8 % (11.5-15.5); WBC 14.4 k/uL (3.8-10.6)
[2024-04-07 22:40] LABS: ALT 12 U/L (4-49); AST 22 U/L (17-59); African American GFR (CKD) 54 (>60 ml/min/1.73 sqM); Albumin 3.7 g/dL (3.5-5.0); Alkaline Phosphatase 56 U/L (38-126); Anion Gap 5 mmol/L; Blood Urea Nitrogen 15 mg/dL (9-20); Carbon Dioxide 24 mmol/L (22-30); Chloride 105 mmol/L (98-107); Glucose 132 mg/dL (74-99); Non-African American GFR(CKD) 46 (>60 ml/min/1.73 sqM); Sodium 134 mmol/L (137-145); Total Bilirubin 0.4 mg/dL (0.2-1.3); Total Protein 5.9 g/dL (6.3-8.2)
[2024-04-07 22:53] LABS: Partial Thromboplastin Time 22.5 sec (22.0-30.0); Prothrombin Time 10.6 sec (10.0-12.5)
--- NOTE | 2024-04-07 23:27 | XR ---
EXAM: XR Chest, 2 Views CLINICAL HISTORY: ITS.REASON XR Reason: dizziness TECHNIQUE: Frontal and lateral views of the chest. COMPARISON: CT chest: 06/24/2023 FINDINGS: Lungs: Somewhat hyperinflated lungs. No consolidation or focal lesions. Pleural space: Unremarkable. No pneumothorax. Heart: No cardiomegaly. Prominent aortic knob. Mediastinum: Unremarkable. Normal mediastinal contour. Bones/joints: Unremarkable. No acute fracture. Other findings: A mildly elevated right hemidiaphragm. . IMPRESSION: No acute cardiopulmonary process. Prominent aortic arch/knob .
--- NOTE | 2024-04-07 23:41 | ED ---
General Adult HPI - General Chief complaint: Dizziness Stated complaint: Numbness Time Seen by Provider: 04/07/24 21:45 Source: patient, RN notes reviewed Mode of arrival: ambulatory Limitations: no limitations - History of Present Illness Initial comments: 53-year-old male presents to the emergency department for evaluation of lightheadedness. He states that this started about an hour prior to arrival. He notes that he was at work when this occurred. This lasted around 30 minutes according to the patient. At that time he also reports that his fingers became cold and discolored. He states that his symptoms have since resolved. Patient reports that he was doing frequent bending motions. The patient reports a history of factor V Leiden he is on Eliquis and has not missed any doses. He denies any chest pain, shortness of breath. - Related Data Home Medications Medication Instructions Recorded Confirmed Apixaban [Eliquis] 2.5 mg PO BID 08/27/22 09/01/22 Cholecalciferol [Vitamin D3 (25 50 mcg PO DAILY 08/27/22 09/01/22 Mcg = 1000 Iu)] Tamsulosin [Flomax] 0.4 mg PO QAM 08/27/22 09/01/22 tiZANidine HCL [Zanaflex] 4 - 8 mg PO HS PRN 08/27/22 09/01/22 Previous Rx's Medication Instructions Recorded oxyCODONE HCL [OxyIR] 5 mg PO Q6H PRN 3 Days #6 tab 09/01/22 Ciprofloxacin HCl [Cipro] 500 mg PO Q12HR #20 tablet 04/08/24 Allergies Allergy/AdvReac Type Severity Reaction Status Date / Time No Known Allergies Allergy Verified 04/07/24 21:32 Review of Systems ROS Statement: Those systems with pertinent positive or pertinent negative responses have been documented in the HPI. ROS Other: All systems not noted in ROS Statement are negative. Past Medical History Past Medical History: Deep Vein Thrombosis (DVT), Prostate Disorder Additional Past Medical History / Comment(s): FACTOR 5 Leiden-dvts left calf yrs aog, FORMER ALCOHOLIC-quit drinking 150 days ago,enlarged prostate,enlarged liver History of Any Multi-Drug Resistant Organisms: None Reported Additional Past Surgical History / Comment(s): "STOMACH surgery because I wasn't able to hold food down as a infant", left carotid artery "cleaned out" Past Anesthesia/Blood Transfusion Reactions: No Reported Reaction Additional Past Anesthesia/Blood Transfusion Reaction / Comment(s): no hx blood transfusion Past Psychological History: Anxiety, Depression Smoking Status: Current every day smoker Past Alcohol Use History: None Reported Past Drug Use History: None Reported - Past Family History Mother Family Medical History: No Reported History General Exam Limitations: no limitations General appearance: alert, in no apparent distress Head exam: Present: atraumatic, normocephalic, normal inspection Eye exam: Present: normal appearance, PERRL, EOMI. Absent: scleral icterus, conjunctival injection, periorbital swelling ENT exam: Present: normal exam, mucous membranes moist Neck exam: Present: normal inspection. Absent: tenderness, meningismus, lymphadenopathy Respiratory exam: Present: normal lung sounds bilaterally. Absent: respiratory distress, wheezes, rales, rhonchi, stridor Cardiovascular Exam: Present: regular rate, normal rhythm, normal heart sounds. Absent: systolic murmur, diastolic murmur, rubs, gallop, clicks Extremities exam: Present: normal inspection, full ROM, normal capillary refill. Absent: tenderness, pedal edema, joint swelling, calf tenderness Back exam: Present: normal inspection Neurological exam: Present: alert, oriented X3, CN II-XII intact, normal gait. Absent: motor sensory deficit Psychiatric exam: Present: normal affect, normal mood Skin exam: Present: warm, dry, intact, normal color. Absent: rash Course Vital Signs 04/07/24 04/08/24 21:29 00:38 Temperature 97.3 F L Pulse Rate 127 H 99 Respiratory 20 18 Rate Blood Pressure 110/73 106/70 O2 Sat by Pulse 95 Oximetry Medical Decision Making - Medical Decision Making Was pt. sent in by a medical professional or institution (, PA, LEAK DETECTION ENGINEER, urgent care, hospital, or long term...) When possible be specific @ -No Did you speak to anyone other than the patient for history (EMS, parent, family, police, friend...)? What history was obtained from this source @ -No Did you review nursing and triage notes (agree or disagree)? Why? @ -I reviewed and agree with nursing and triage notes Were old charts reviewed (outside hosp., previous admission, EMS record, old EKG, old radiological studies, urgent care reports/EKG's, long term records)? Report findings @ -No old charts were reviewed Differential Diagnosis (chest pain, altered mental status, abdominal pain women, abdominal pain men, vaginal bleeding, weakness, fever, dyspnea, syncope, headache, dizziness, GI bleed, back pain, seizure, CVA, palpatations, mental health, musculoskeletal)? @ -Differential Dizziness: Benign paroxysmal positional Vertigo, Meniere's disease, otitis media, acoustic neuroma, vertebrobasilar insufficiency, cerebellar stroke, encephalitis, hypovolemic, arrhythmia, coronary artery syndrome, anemia, this is not meant to be an all-inclusive list e EKG interpreted by me (3pts min.). @ -EKG is 2137 shows sinus rhythm rate 84, [place] 160, QRS 85, QTQTc 346/387 X-rays interpreted by me (1pt min.). @ -Chest x-ray shows no acute process CT interpreted by me (1pt min.). @ -None done U/S interpreted by me (1pt. min.). @ -None done What testing was considered but not performed or refused? (CT, X-rays, U/S, l abs)? Why? @ -None What meds were considered but not given or refused? Why? @ -None Did you discuss the management of the patient with other professionals (professionals i.e. , PA, LEAK DETECTION ENGINEER, lab, RT, psych nurse, elementary school social worker, lease attendant, teacher, life science technical officer, rifle case repairer)? Give summary @ -No Was smoking cessation discussed for >3mins.? @ -No Was critical care preformed (if so, how long)? @ -No Were there social determinants of health that impacted care today? How? (Homelessness, low income, unemployed, alcoholism, drug addiction, transportation, low edu. Level, literacy, decrease access to med. care, fdc, rehab)? @ -No Was there de-escalation of care discussed even if they declined (Discuss DNR or withdrawal of care, Hospice)? DNR status @ -No What co-morbidities impacted this encounter? (DM, HTN, Smoking, COPD, CAD, Cancer, CVA, ARF, Chemo, Hep., AIDS, mental health diagnosis, sleep apnea, morbid obesity)? @ -None Was patient admitted / discharged? Hospital course, mention meds given and route, prescriptions, significant lab abnormalities, going to OR and other pertinent info. @ -Discharge. Patient presented the emergency department for evaluation of comfortable episode. Laboratory studies obtained revealing mild leukocytosis at 14, Normal coagulation studies; creatinine mildly elevated at 1.64 patient was hydrated with 1 L normal saline. Troponin was negative. UA shows large leukocyte esterase, greater than 182 WBCs, hyaline casts, amorphous sediment. Urine drug screen negative, patient negative for COVID, influenza, RSV. Chest x-ray shows no acute process. Patient will be treated for a urinary tract infection, will be discharged home. He is understanding and agreeable with this plan. Patient stable at time of discharge. Case discussed with Dr. Aparicio Undiagnosed new problem with uncertain prognosis? @ -No Drug Therapy requiring intensive monitoring for toxicity (Heparin, Nitro, Insulin, Cardizem)? @ -No Were any procedures done? @ -No Diagnosis/symptom? @ -Urinary tract infection, dehydration Acute, or Chronic, or Acute on Chronic? @ -Acute Uncomplicated (without systemic symptoms) or Complicated (systemic symptoms)? @ -Uncomplicated Side effects of treatment? @ -No Exacerbation, Progression, or Severe Exacerbation? @ -No Poses a threat to life or bodily function? How? (Chest pain, [place], [place], pneumonia, PE, COPD, DKA, ARF, appy, cholecystitis, CVA, Diverticulitis, Homicidal, Suicidal, threat to staff... and all critical care pts) @ -No - Lab Data Result diagrams: 04/07/24 21:43 04/07/24 21:43 Lab Results 04/07/24 04/07/24 04/07/24 Range/Units 21:43 21:43 21:43 WBC 14.4 H (3.8-10.6) k/uL RBC 4.87 (4.30-5.90) m/uL Hgb 14.3 (13.0-17.5) gm/dL Hct 44.0 (39.0-53.0) % MCV 90.2 (80.0-100.0) fL MCH 29.4 (25.0-35.0) pg MCHC 32.6 (31.0-37.0) g/dL RDW 12.8 (11.5-15.5) % Plt Count 333 (150-450) k/uL MPV 7.2 Neutrophils % 80 % Lymphocytes % 13 % Monocytes % 5 % Eosinophils % 0 % Basophils % 0 % Neutrophils # 11.6 H (1.3-7.7) k/uL Lymphocytes # 1.9 (1.0-4.8) k/uL Monocytes # 0.7 (0-1.0) k/uL Eosinophils # 0.1 (0-0.7) k/uL Basophils # 0.0 (0-0.2) k/uL PT 10.6 (10.0-12.5) sec INR 1.0 (<1.2) APTT 22.5 (22.0-30.0) sec Sodium 134 L (137-145) mmol/L Potassium 4.0 (3.5-5.1) mmol/L Chloride 105 (98-107) mmol/L Carbon Dioxide 24 (22-30) mmol/L Anion Gap 5 mmol/L BUN 15 (9-20) mg/dL Creatinine 1.64 H (0.66-1.25) mg/dL Est GFR (CKD-EPI)AfAm 54 (>60 ml/min/1.73 sqM) Est GFR (CKD-EPI)NonAf 46 (>60 ml/min/1.73 sqM) Glucose 132 H (74-99) mg/dL Calcium 9.0 (8.4-10.2) mg/dL Total Bilirubin 0.4 (0.2-1.3) mg/dL AST 22 (17-59) U/L ALT 12 (4-49) U/L Alkaline Phosphatase 56 (38-126) U/L Troponin I (0.000-0.034) ng/mL Total Protein 5.9 L (6.3-8.2) g/dL Albumin 3.7 (3.5-5.0) g/dL Urine Color Urine Appearance (Clear) Urine pH (5.0-8.0) Ur Specific [place] (1.001-1.035) Urine Protein (Negative) Urine Glucose (UA) (Negative) Urine Ketones (Negative) Urine Blood (Negative) Urine Nitrite (Negative) Urine Bilirubin (Negative) Urine Urobilinogen (<2.0) mg/dL Ur Leukocyte Esterase (Negative) Urine RBC (0-5) /hpf Urine WBC (0-5) /hpf Ur Squamous Epith Cells (0-4) /hpf Triple Phos Crystals (None) /hpf Amorphous Sediment (None) /hpf Urine Bacteria (None) /hpf Hyaline Casts (0-2) /lpf Urine Mucus (None) /hpf Urine Opiates Screen (NotDetected) Ur Oxycodone Screen (NotDetected) Urine Methadone Screen (NotDetected) Ur Barbiturates Screen (NotDetected) U Tricyclic Antidepress (NotDetected) Ur Phencyclidine Scrn (NotDetected) Ur Amphetamines Screen (NotDetected) U Methamphetamines Scrn (NotDetected) U Benzodiazepines Scrn (NotDetected) Urine Cocaine Screen (NotDetected) U Marijuana (THC) Screen (NotDetected) Influenza Type A (PCR) (Not Detectd) Influenza Type B (PCR) (Not Detectd) RSV (PCR) (Not Detectd) SARS-CoV-2 (PCR) (Not Detectd) 04/07/24 04/07/24 04/07/24 Range/Units 21:43 22:15 23:25 WBC (3.8-10.6) k/uL RBC (4.30-5.90) m/uL Hgb (13.0-17.5) gm/dL Hct (39.0-53.0) % MCV (80.0-100.0) fL MCH (25.0-35.0) pg MCHC (31.0-37.0) g/dL RDW (11.5-15.5) % Plt Count (150-450) k/uL MPV Neutrophils % % Lymphocytes % % Monocytes % % Eosinophils % % Basophils % % Neutrophils # (1.3-7.7) k/uL Lymphocytes # (1.0-4.8) k/uL Monocytes # (0-1.0) k/uL Eosinophils # (0-0.7) k/uL Basophils # (0-0.2) k/uL PT (10.0-12.5) sec INR (<1.2) APTT (22.0-30.0) sec Sodium (137-145) mmol/L Potassium (3.5-5.1) mmol/L Chloride (98-107) mmol/L Carbon Dioxide (22-30) mmol/L Anion Gap mmol/L BUN (9-20) mg/dL Creatinine (0.66-1.25) mg/dL Est GFR (CKD-EPI)AfAm (>60 ml/min/1.73 sqM) Est GFR (CKD-EPI)NonAf (>60 ml/min/1.73 sqM) Glucose (74-99) mg/dL Calcium (8.4-10.2) mg/dL Total Bilirubin (0.2-1.3) mg/dL AST (17-59) U/L ALT (4-49) U/L Alkaline Phosphatase (38-126) U/L Troponin I <0.012 (0.000-0.034) ng/mL Total Protein (6.3-8.2) g/dL Albumin (3.5-5.0) g/dL Urine Color Light Yellow Urine Appearance Turbid (Clear) Urine pH 8.0 (5.0-8.0) Ur Specific [place] 1.014 (1.001-1.035) Urine Protein Trace H (Negative) Urine Glucose (UA) Negative (Negative) Urine Ketones Negative (Negative) Urine Blood Trace H (Negative) Urine Nitrite Negative (Negative) Urine Bilirubin Negative (Negative) Urine Urobilinogen <2.0 (<2.0) mg/dL Ur Leukocyte Esterase Large H (Negative) Urine RBC 16 H (0-5) /hpf Urine WBC >182 H (0-5) /hpf Ur Squamous Epith Cells 6 H (0-4) /hpf Triple Phos Crystals Occasional H (None) /hpf Amorphous Sediment Moderate H (None) /hpf Urine Bacteria Rare H (None) /hpf Hyaline Casts 266 H (0-2) /lpf Urine Mucus Many H (None) /hpf Urine Opiates Screen Not Detected (NotDetected) Ur Oxycodone Screen Not Detected (NotDetected) Urine Methadone Screen Not Detected (NotDetected) Ur Barbiturates Screen Not Detected (NotDetected) U Tricyclic Antidepress Not Detected (NotDetected) Ur Phencyclidine Scrn Not Detected (NotDetected) Ur Amphetamines Screen Not Detected (NotDetected) U Methamphetamines Scrn Not Detected (NotDetected) U Benzodiazepines Scrn Not Detected (NotDetected) Urine Cocaine Screen Not Detected (NotDetected) U Marijuana (THC) Screen Not Detected (NotDetected) Influenza Type A (PCR) Not Detected (Not Detectd) Influenza Type B (PCR) Not Detected (Not Detectd) RSV (PCR) Not Detected (Not Detectd) SARS-CoV-2 (PCR) Not Detected (Not Detectd) Disposition Clinical Impression: UTI (urinary tract infection) Disposition: HOME SELF-CARE Condition: Stable Instructions (If sedation given, give patient instructions): Urinary Tract Infection in Men (ED) Additional Instructions: 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 Please follow up with your primary care provider. Return to the emergency department for new or worsening symptoms. Prescriptions: Ciprofloxacin HCl [Cipro] 500 mg PO Q12HR #20 tablet Is patient prescribed a controlled substance at d/c from ED?: No Referrals: Loly Chauhan MD [Primary Care Provider] - 1-2 days
[2024-04-08 00:17] LABS: Amorphous Sediment,Urine Moderate /hpf; Appearance,Urine Turbid (Clear); Bacteria,Urine Rare /hpf; Bilirubin,Urine Negative (Negative); Blood,Urine Trace (Negative); Color,Urine Light Yellow; Glucose,Urine (UA) Negative (Negative); Hyaline Casts,Urine 266 /lpf (0-2); Ketones,Urine Negative (Negative); Leukocyte Esterase,Urine Large (Negative); Mucus,Urine Many /hpf; Nitrite,Urine Negative (Negative); Protein,Urine Trace (Negative); RBC,Urine 16 /hpf (0-5); Specific Gravity,Urine 1.014 (1.001-1.035); Squamous Epithelial Cell,Urine 6 /hpf (0-4); Triple Phosphate Crystal,Urine Occasional /hpf; Urobilinogen,Urine <2.0 mg/dL (<2.0); WBC,Urine >182 /hpf (0-5)
[2024-04-08 00:21] LABS: Amphetamine Screen,Urine Not Detected (NotDetected); Barbiturate Screen,Urine Not Detected (NotDetected); Benzodiazepines Screen,Urine Not Detected (NotDetected); Cocaine Screen,Urine Not Detected (NotDetected); Methadone Screen, Urine Not Detected (NotDetected); Opiate Screen,Urine Not Detected (NotDetected); Oxycodone Screen, Urine Not Detected (NotDetected); Phencyclidine Screen,Urine Not Detected (NotDetected); Tricyclic Antidepressant,Urine Not Detected (NotDetected); Urn Cannabinoid Scrn Not Detected (NotDetected)
[2024-04-08 00:38] VITALS: BP 106/70; PULSE 99; RESP 18
[2024-04-08] MEDS: cefTRIAXone IN SWFI 1,000 MG/10 ML SYRINGE IVP STA (00:58)
== END 2024-04-08 01:09 | disposition home or self-care (01) ==
LOC: EC 21:28
DX: N39.0 Urinary tract infection, site not specified (principal); F17.200 Nicotine dependence, unspecified, uncomplicated
CPT/HCPCS: 96374 ×2; 96361 ×2; 99284 ×2; 36415; 93005; 80053; 84484; 85025; 85610; 85730; 81001; 80306; 87636; 71046; J0696

== ENCOUNTER → 2024-07-06 | Outpatient (CLI) | payer OTHER ==
--- NOTE | 2024-07-06 14:58 | CTL ---
EXAMINATION TYPE: CT Low Dose Lung DATE OF EXAM ORDERED: 07/06/2024 COMPARISON: 06/24/2023 CLINICAL INDICATION: Male, 53 years old with history of Z12.2 Screening; F17.210 Nicotine dependence; PHH, , Lung cancer screening, History of Smoking/tobacco use. TECHNIQUE: Low dose computed tomography scan was performed through the chest at 1 mm thick sections a nd reconstructed images in multiple planes at 1 mm and [address] DLP: mGycm CT CTDI: mGy Automated exposure control for dose reduction was used. CT DIAGNOSTIC QUALITY: Satisfactory EXAMINATION TYPE: CT Low Dose Lung DATE OF EXAM ORDERED: 07/06/2024 CLINICAL INDICATION: Male, 53 years old with history of Z12.2 Screening; F17.210 Nicotine dependence, history of tobacco use, Lung cancer screening CT DLP: mGycm CT CTDI: mGy Automated exposure control for dose reduction was used. Comparison: None TECHNIQUE: Low dose computed tomography scan was performed through the chest at 1 mm thick sections a nd reconstructed images in multiple planes at 1 mm and [address] DIAGNOSTIC QUALITY: Satisfactory FINDINGS: There is no suspicious lung mass or nodule The lungs are clear and there is no abnormal airspace consolidation or interstitial density. There is no mediastinal, hilar or axillary adenopathy. There is 4.3 cm dilatation of the ascending thoracic aorta. There is no pleural effusion, pleural thickening or pneumothorax. No focal osseous lesions are seen. Limited scans the upper abdomen reveals no gross abnormality IMPRESSION: 1. Lung rads Category 1 negative. Continue routine screening at yearly intervals. 2. No acute cardiopulmonary disease. 3. 4.3 cm dilatation of the ascending thoracic aorta. [facility], , 07/06/2024 2:55 PM
== END | disposition home or self-care (01) ==
LOC: RADCTMAIN 13:03
PROVIDERS: ATTEND Family Medicine
DX: Z12.2 Encounter for screening for malignant neoplasm of respiratory organs (principal); F17.210 Nicotine dependence, cigarettes, uncomplicated; I77.810 Thoracic aortic ectasia
CPT/HCPCS: 71271